=== PATIENT | female | born 1995 | race Caucasian/White ===

== ENCOUNTER 2018-02-28 17:40 | Emergency (ER) | END 2018-02-28 20:00 | disposition home or self-care (01) ==

== ENCOUNTER 2018-05-13 11:10 | Emergency (ER) | END 2018-05-13 14:31 | disposition home or self-care (01) ==

== ENCOUNTER 2018-05-15 19:32 | Emergency (ER) | END 2018-05-16 00:05 | disposition home or self-care (01) ==

== ENCOUNTER 2018-05-21 19:50 | Emergency (ER) | END 2018-05-22 00:48 | disposition home or self-care (01) ==

== ENCOUNTER 2019-04-07 09:28 | Emergency (ER) | payer MEDICAID ==
[~2019-04-07] VITALS: Ht 160 cm; Wt 90.0 kg
[~2019-04-07 09:28] MED LIST: ACET500C5 PO; CEPH-443 PO; HYDR-4011 PO; IBUP-1542 PO; MECL-77 PO; NAPR-985 PO; ONDA4TAB14 PO
[2019-04-07 09:33] VITALS: Ht 160 cm; Wt 90.0 kg
[2019-04-07] MEDS ORDERED: KETOROLAC 30 MG INJ IV STA (10:51)
[2019-04-07] MEDS ORDERED: ONDANSETRON 4 MG INJ IV STA (10:51)
[2019-04-07] MEDS ORDERED: PROCHLORPERAZINE 10 MG INJ IV STA (10:51)
[2019-04-07] MEDS ORDERED: SOD CHLORIDE 0.9% 1,000 ML IV STA (10:51)
[2019-04-07 12:45] VITALS: BP 127/70; PULSE 71; RESP 18
[2019-04-07] MEDS ORDERED: CEFTRIAXONE 1 GM INJ IVPB ONE (13:00)
== END 2019-04-07 12:49 | disposition home or self-care (01) ==
LOC: FTE 09:28
DX: G43.909 Migraine, unspecified, not intractable, without status migrainosus (principal); N30.00 Acute cystitis without hematuria; I10 Essential (primary) hypertension
CPT/HCPCS: 36415; 80048; 81001; 81025; 84703; 85025; 96361; 96374; 96375; J0696; J0780; J1885; J2405; J7030; Z7502